=== PATIENT | female | born 1955 | race Caucasian/White ===

== ENCOUNTER 2018-05-09 08:24 | Inpatient (IN) | payer OTHER ==
[2018-05-09] MEDS: LR 1,000 ML IV ×3 (09:25→12:45)
[2018-05-09] MEDS ORDERED: fentaNYL 100 MCG/2 ML INJECTION (J3010) As Ordered ×2 (09:48→11:09)
[2018-05-09] MEDS ORDERED: MIDAZOLAM INJ 2 MG/2 ML VIAL (J2250) As Ordered ×2 (09:48→11:09)
[2018-05-09] MEDS: MIDAZOLAM INJ 2 MG/2 ML VIAL (J2250) IV (10:05)
[2018-05-09] MEDS: fentaNYL 100 MCG/2 ML INJECTION (J3010) IV (10:05)
[2018-05-09] MEDS ORDERED: ONDANSETRON 4MG/2ML VIAL (J2405) As Ordered (11:09)
[2018-05-09] MEDS ORDERED: BUPIVACAINE/DEXTROSE 0.75% 2 ML AMP As Ordered (11:09)
[2018-05-09] MEDS ORDERED: LIDOCAINE 2% INJ 100 MG/5 ML SDV (FOR ANES.) As Ordered (11:09)
[2018-05-09] MEDS ORDERED: PHENYLephrine HCL 500 MCG/5 ML (100MCG/ML) SYRINGE (J2370) As Ordered (11:49)
[2018-05-09] MEDS: EPINEPHrine INJ 1 MG/ML 1ML AMP As Ordered (11:53)
[2018-05-09] MEDS: TRANEXAMIC ACID 100 MG/ML 10ML VIAL As Ordered (11:53)
[2018-05-09] MEDS: ceFAZolin 1GM INJ (J0690 PER 500MG) As Ordered (11:55)
[2018-05-09] MEDS: BUPIVACAINE LIPOSOME/PF 1.3% 20ML VIAL (13.3MG/ML)(EXPAREL)(C9290 PER1MG) As Ordered (11:56)
[2018-05-09] MEDS ORDERED: dexameTHASONE 10 MG/1 ML VIAL PRES.FREE (J1100) (12:02)
[2018-05-09] MEDS ORDERED: ROPIvacaine 0.5% 30 ML INJECTION (J2795 PER 1MG) (12:02)
[2018-05-09] MEDS ORDERED: LIDOCAINE 1% MDV 20ML VIAL (12:02)
[2018-05-09] MEDS ORDERED: NALOXONE INJ 0.4 MG/1 ML VIAL (J2310) IV (12:45)
[2018-05-09] MEDS ORDERED: diphenhydrAMINE INJ 50MG/ML VIAL (J1200) IV (12:45)
[2018-05-09] MEDS ORDERED: fentaNYL 100 MCG/2 ML INJECTION (J3010) IV (12:45)
[2018-05-09] MEDS ORDERED: NALBUPHINE HCL 10 MG/ML AMP (J2300) IV (12:45)
[2018-05-09] MEDS ORDERED: EPIDURAL/PCA KEYS XX (12:45)
[2018-05-09] MEDS ORDERED: FLEET ENEMA PR (12:45)
[2018-05-09] MEDS ORDERED: MORPHINE 1MG/ML IN 0.9% NACL 100ML IV BAG IV (12:45)
[2018-05-09] MEDS ORDERED: PERCOCET 5MG/325MG TAB PO (12:45)
[2018-05-09] MEDS ORDERED: HYDROMORPHONE HCL 0.5 MG/ 0.5 ML SYRINGE (J1170 PER 1) IV (12:45)
[2018-05-09] MEDS ORDERED: ONDANSETRON 4MG/2ML VIAL (J2405) IV ×3 (12:45)
[2018-05-09] MEDS ORDERED: MORPHINE 1MG/ML IN 0.9% NACL 100ML IV BAG As Ordered (12:57)
[2018-05-09 15:28] LABS: HEMOGLOBIN 14.3 g/dl (12.0-15.5); MEAN CORPUSCULAR HEMOGLOBIN 31.2 pg (27.0-33.0); MEAN CORPUSCULAR VOLUME 91.5 fl (80.0-96.0); PLATELET COUNT, AUTOMATED 276 10^3/uL (150-450); RED BLOOD COUNT 4.59 10^6/uL (4.00-5.40); RED CELL DISTRIBUTION WIDTH 11.4 % (11.5-14.5); WHITE BLOOD COUNT 11.1 10^3/uL (4.0-10.0)
[2018-05-09] MEDS ORDERED: ePHEDrine SULFATE 25 MG/5 ML(5MG/ML) SYRINGE As Ordered (15:33)
[2018-05-09] MEDS ORDERED: PROPOFOL 500 MG/50 ML VIAL As Ordered (15:33)
[2018-05-09 15:54] LABS: ANION GAP 6 MEQ/L (8-16); BLOOD UREA NITROGEN 14 MG/DL (7-18); CALCIUM LEVEL 9.1 MG/DL (8.8-10.2); CARBON DIOXIDE LEVEL 30 MEQ/L (21-32); CHLORIDE LEVEL 102 MEQ/L (98-107); CREATININE FOR GFR 0.66 MG/DL (0.55-1.30); GLOMERULAR FILTRATION RATE > 60.0 (>45); GLUCOSE, FASTING 163 MG/DL (70-100); POTASSIUM SERUM 4.4 MEQ/L (3.5-5.1); SODIUM LEVEL 138 MEQ/L (136-145)
[2018-05-09] MEDS: LISINOPRIL 5 MG TAB PO (17:27)
[2018-05-09] MEDS: hydroCHLOROthiazide 25 MG TAB PO (17:28)
[2018-05-10] MEDS ORDERED: traMADol 50 MG TAB PO (06:30)
[2018-05-10] MEDS ORDERED: ONDANSETRON 4 MG TAB (S0181) PO (06:30)
[2018-05-10 06:33] LABS: HEMATOCRIT 38.2 % (36.0-47.0); HEMOGLOBIN 12.8 g/dl (12.0-15.5); MEAN CORPUSCULAR HEMOGLOBIN 30.8 pg (27.0-33.0); MEAN CORPUSCULAR HGB CONC 33.5 g/dl (32.0-36.5); MEAN CORPUSCULAR VOLUME 91.8 fl (80.0-96.0); PLATELET COUNT, AUTOMATED 256 10^3/uL (150-450); RED BLOOD COUNT 4.16 10^6/uL (4.00-5.40); RED CELL DISTRIBUTION WIDTH 11.4 % (11.5-14.5); WHITE BLOOD COUNT 11.7 10^3/uL (4.0-10.0)
[2018-05-10] MEDS: traMADol 50 MG TAB PO ×3 (06:50→20:11)
[2018-05-10] MEDS: LISINOPRIL 5 MG TAB PO (08:42)
[2018-05-10] MEDS: hydroCHLOROthiazide 25 MG TAB PO (08:42)
[2018-05-10] MEDS: SENOKOT S TAB PO ×2 (08:42→20:10)
[2018-05-10] MEDS: MOM 30ML SUSPENSION UDC PO (08:43)
[2018-05-10] MEDS: MIRALAX *UNIT DOSE* 17GM PACKET PO (08:43)
[2018-05-10] MEDS: ACETAMINOPHEN TAB 650MG DOSE (2X325MG) PO ×2 (12:10→18:42)
[2018-05-10] MEDS: RIVAROXABAN 10 MG TAB (XARELTO) PO (17:45)
[2018-05-11] MEDS: traMADol 50 MG TAB PO ×2 (02:18→08:34)
[2018-05-11 06:20] LABS: HEMATOCRIT 37.7 % (36.0-47.0); HEMOGLOBIN 12.7 g/dl (12.0-15.5); MEAN CORPUSCULAR HEMOGLOBIN 30.5 pg (27.0-33.0); MEAN CORPUSCULAR HGB CONC 33.7 g/dl (32.0-36.5); MEAN CORPUSCULAR VOLUME 90.6 fl (80.0-96.0); PLATELET COUNT, AUTOMATED 227 10^3/uL (150-450); RED BLOOD COUNT 4.16 10^6/uL (4.00-5.40); RED CELL DISTRIBUTION WIDTH 11.5 % (11.5-14.5); WHITE BLOOD COUNT 11.2 10^3/uL (4.0-10.0)
[2018-05-11] MEDS: hydroCHLOROthiazide 25 MG TAB PO (08:34)
[2018-05-11] MEDS: MIRALAX *UNIT DOSE* 17GM PACKET PO (08:34)
[2018-05-11] MEDS: MOM 30ML SUSPENSION UDC PO (08:34)
[2018-05-11] MEDS: SENOKOT S TAB PO ×2 (08:34→21:00)
[2018-05-11] MEDS: LISINOPRIL 5 MG TAB PO (08:34)
[2018-05-11] MEDS: ACETAMINOPHEN TAB 650MG DOSE (2X325MG) PO ×3 (10:53→21:22)
[2018-05-11] MEDS: MECLIZINE 25 MG TABLET PO ×2 (10:53→17:18)
[2018-05-11] MEDS: RIVAROXABAN 10 MG TAB (XARELTO) PO (17:19)
[2018-05-12] MEDS: ACETAMINOPHEN TAB 650MG DOSE (2X325MG) PO ×2 (04:15→10:09)
[2018-05-12] MEDS: MOM 30ML SUSPENSION UDC PO (08:01)
[2018-05-12] MEDS: MIRALAX *UNIT DOSE* 17GM PACKET PO (08:01)
[2018-05-12] MEDS: SENOKOT S TAB PO (08:02)
[2018-05-12] MEDS: MECLIZINE 25 MG TABLET PO (08:44)
[2018-05-12] MEDS: hydroCHLOROthiazide 25 MG TAB PO (09:25)
[2018-05-12] MEDS: LISINOPRIL 5 MG TAB PO (09:26)
== END 2018-05-12 11:40 | disposition home or self-care (01) | DRG 470 ==
LOC: M OR 08:24 → M MS5PR 13:30
PROC: 0SRD0J9 Replacement of Left Knee Joint with Synthetic Substitute, Cemented, Open Approach (ICD-10-PCS; principal; 2018-05-09 10:30)
DX: M17.12 Unilateral primary osteoarthritis, left knee (principal)